=== PATIENT | female | born 1955 | race Caucasian/White ===

== ENCOUNTER 2018-06-12 08:05 | Day surgery (SDC) | END 2018-06-12 09:59 | disposition home or self-care (01) ==

== ENCOUNTER 2018-06-14 07:22 | Day surgery (SDC) | END 2018-06-14 11:15 | disposition home or self-care (01) ==

== ENCOUNTER 2018-06-14 11:26 | Emergency (ER) | END 2018-06-14 18:13 | disposition home or self-care (01) ==

== ENCOUNTER → 2018-08-06 | Outpatient (CLI) | END | disposition home or self-care (01) ==